=== PATIENT | female | born 1955 ===

== ENCOUNTER 2017-03-02 15:17 | Observation (INO) | payer BC, OTHER ==
[2017-03-02 15:17] VITALS: BMI 29.7
[2017-03-02] MEDS ORDERED: Sodium Chloride 0.9% 1,000 ML IV STA (15:41)
[2017-03-02 15:58] LABS: ADD MANUAL DIFF? NO
[2017-03-02 16:04] LABS: BASO # 0.02 K/mm3 (0.0-2.0); BASO % 0.2 % (0.0-3.0); EOS # 0.1 (0.0-0.7); EOS % 0.5 % (1.5-5.0); GRAN # 9.08 (1.4-6.5); GRAN % 81.7 % (50.0-68.0); HEMATOCRIT 35.9 % (36.0-48.0); LYMPH # 1.4 (1.2-3.4); LYMPH % 12.7 % (22.0-35.0); MEAN CELL VOLUME 80.5 fl (80.0-105.0); MEAN CORPUSCULAR HEMOGLOBIN 28.7 pg (25.0-35.0); MEAN CORPUSCULAR HGB CONC 35.7 g/dl (31.0-37.0); MEAN PLATELET VOLUME 10.3 fl (7.0-11.0); MONO # 0.5 (0.1-0.6); MONO % 4.9 % (1.0-6.0); PLATELET COUNT 182 10^3/uL (120.0-450.0); RED CELL DISTRIBUTION WIDTH 13.9 % (11.5-14.5); WHITE BLOOD COUNT 11.1 10^3/ul (4.5-11.0)
--- NOTE | 2017-03-02 16:04 | ED PDOC ---
Arrival/HPI - General Historian: Patient, Family - History of Present Illness Time/Duration: Prior to Arrival Symptom Onset: Sudden Quality: Cramping Severity Level: Moderate Context: Fainted, Other (straining on the toilet) <Irvin Johnson - Last Filed: 03/02/17 18:01> <MinnieMadhavi - Last Filed: 03/02/17 18:24> - General Chief Complaint: Syncope Time Seen by Provider: 03/02/17 15:17 - History of Present Illness Narrative History of Present Illness (Text): 03/02/17 16:12 61yo F with PMHx of HTN here for evaluation after syncope. Patient was at work when she started feeling a cramping type of abdominal pain. She went to the restroom and was sitting down on the toilet when she had a syncopal episode. She states that she felt diaphoretic just prior to her syncopal episode. She denies any trauma, head trauma, no headaches. Denies ever having similar symptoms before. States that she has not been drinking much fluids. Last meal was this afternoon (Rice and beans). She states that she feels constipated today. No N/V/D. Abd pain is still mildly present, described as colicky, cramping type of abd pain. She states that her co-workers found her in the restroom. Currently, patient states that she feels tired. Denies any recent illness. No sick contacts. No Fevers, chills. No CP/SOB. no Palpitations. The son is accompanying the patient. PMHx: HTN PSHx: Neck excess skin/fat removal. Foot skin mass removal. Uterine Fibroid removal, Hysterectomy Social Hx: Works at a [employer]. Denies Tobacco, Denies ETOH, Denies illicit drug use. NKDA (Irvin Johnson) Past Medical History - Provider Review Nursing Documentation Reviewed: Yes - Infectious Disease Hx of Infectious Diseases: None - Cardiac Hx Cardiac Disorders: Yes Hx Hypertension: Yes - Pulmonary Hx Respiratory Disorders: No - Neurological Hx Neurological Disorder: No - HEENT Hx HEENT Disorder: No - Renal Hx Renal Disorder: No - Endocrine/Metabolic Hx Endocrine Disorders: No - Hematological/Oncological Hx Blood Disorders: No - Integumentary Hx Dermatological Disorder: No - Musculoskeletal/Rheumatological Hx Musculoskeletal Disorders: No - Gastrointestinal Hx Gastrointestinal Disorders: No - Genitourinary/Gynecological Hx Genitourinary Disorders: No - Psychiatric Hx Psychophysiologic Disorder: No Hx Substance Use: No - Surgical History Hx Hysterectomy: Yes (10 yrs) - Anesthesia Hx Anesthesia: Yes Hx Anesthesia Reactions: No Hx Malignant Hyperthermia: No - Suicidal Assessment Feels Threatened In Home Enviroment: No <ElizabethIrvin - Last Filed: 03/02/17 18:01> Family/Social History - Physician Review Nursing Documentation Reviewed: Yes Family/Social History: Unknown Family HX Smoking Status: Never Smoked Hx Alcohol Use: No Hx Substance Use: No <ElizabethIrvin - Last Filed: 03/02/17 18:01> Allergies/Home Meds <ElizabethIrvin - Last Filed: 03/02/17 18:01> <MinnieMadhavi - Last Filed: 03/02/17 18:24> Allergies/Adverse Reactions: Allergies No Known Allergies Allergy (Verified 03/02/17 15:23) Home Medications: Home Meds Medication Instructions Recorded Confirmed hydroCHLOROthiazide [Microzide] 12.5 mg PO 03/02/17 Review of Systems - Physician Review All systems were reviewed & negative as marked: Yes - Review of Systems Constitutional: Normal Eyes: Normal ENT: Normal Respiratory: Normal Cardiovascular: Syncope. absent: Chest Pain, Palpitations, Edema, Calf Pain, CONTRERAS Gastrointestinal: Abdominal Pain, Constipation. absent: Diarrhea, Nausea, Vomiting Genitourinary Female: absent: Dysuria, Frequency Musculoskeletal: absent: Arthralgias, Back Pain Skin: absent: Rash Neurological: absent: Headache, Dizziness Endocrine: Diaphoresis <ElizabethIrvin - Last Filed: 03/02/17 18:01> Physical Exam Vital Signs Reviewed: Yes Temperature: Afebrile Blood Pressure: Hypertensive Pulse: Regular Respiratory Rate: Normal Appearance: Positive for: Non-Toxic, Comfortable, Ill-Appearing Pain Distress: Mild Mental Status: Positive for: Alert and Oriented X 3 Finger Stick Blood Glucose: 155 - Systems Exam Head: Present: Atraumatic, Normocephalic Extroacular Muscles: Present: EOMI Conjunctiva: Present: Normal Mouth: Present: Dry Neck: No: Meningeal Signs, JVD, Lymphadenopathy Respiratory/Chest: Present: Clear to Auscultation, Good Air Exchange. No: Respiratory Distress, Accessory Muscle Use, Wheezes, Decreased Breath Sounds, Rales, Rhonchi Cardiovascular: Present: Regular Rate and Rhythm, Normal S1, S2. No: Murmurs, Tachycardic Abdomen: No: Tenderness, Distention, Peritoneal Signs, Rebound, Guarding, Hernias Upper Extremity: Present: Normal Inspection. No: Cyanosis, Edema, Swelling Lower Extremity: Present: Normal Inspection. No: Edema, CALF TENDERNESS Neurological: Present: GCS=15 Skin: Present: Warm, Normal Color, Diaphoretic. No: Rashes Psychiatric: Present: Alert, Oriented x 3 <Irvin Johnson - Last Filed: 03/02/17 18:01> Medical Decision Making <Irvin Johnson - Last Filed: 03/02/17 18:01> <Madhavi Hartman - Last Filed: 03/02/17 18:24> ED Course and Treatment: 03/02/17 16:25 61yo F here for evaluation of syncope - History consistent with likely vasovagal episode - EKG: interpreted by me. Similar to previous EKGs. NSR. No ST changes apparent. - CXR - CT Head - CBC/CMP - Troponin - D-Dimer - UA - FSG = 155 - 1L NS bolus 03/02/17 16:27 Mild leukocytosis noted D-Dimer negative CXR - no acute findings CT Head with possible lacunar infarct. No acute hemorrhage Troponin negative 03/02/17 18:02 Discussed findings with family and patient. All questions and concerns addressed. Plan for admission to obs for at least 24hrs. Discussed case with Dr. Lang Farah, who agrees and accepts patient for admission under the hospitalist service. (Irvin Johnson) Patient seen and evaluated with resident. Agree with HPI, clinical findings, plan and treatment. Patient is a 61 year old female who presents to the emergency department for evaluation following a syncopal episode prior to arrival. Patient was sitting down on the toilet when she passed out. Denies any trauma related to fall. Currently complains of fatigue, but denies any other complaints. 03/02/17 18:22 Blood work is nondiagnostic but BP has remained high; CT brain showing lacunar infarct - will need further observation on tele for syncope as well as neuro workup. Resident discussed with Dr. Farah for placement on the hospitalist's service. 03/02/17 18:24 Will give asa and lopressor. (Madhavi Hartman) - Lab Interpretations Lab Results: 03/02/17 15:42 03/02/17 15:42 Lab Results 03/02/17 16:42: Urine Color Yellow, Urine Appearance Clear, Urine pH 6.5, Ur Specific [place] 1.020, Urine Protein Negative, Urine Glucose (UA) Negative, Urine Ketones Negative, Urine Blood Negative, Urine Nitrate Negative, Urine Bilirubin Negative, Urine Urobilinogen 0.2, Ur Leukocyte Esterase Trace H, Urine RBC Negative, Urine WBC 1 - 3, Ur Epithelial Cells 1 - 3, Urine Bacteria Few 03/02/17 15:42: D-Dimer, Quantitative 0.49 03/02/17 15:42: Sodium 138, Potassium 4.0, Chloride 97 L, Carbon Dioxide 29, Anion Gap 16, BUN 17, Creatinine 0.8, Est GFR ( Amer) > 60, Est GFR (Non- Af Amer) > 60, Random Glucose 131 H, Calcium 9.4, Phosphorus 4.0, Magnesium 2.2 , Total Bilirubin 0.4, AST 33, ALT 31, Alkaline Phosphatase 105, Lactate Dehydrogenase 597, Total Creatine Kinase 273 H, CK-MB (CK-2) 1.5, CK-MB (CK-2) % Cancelled, Troponin I < 0.01, Total Protein 8.0, Albumin 4.6, Globulin 3.4, Albumin/Globulin Ratio 1.4, Lipase 90 03/02/17 15:42: WBC 11.1 H, RBC 4.46, Hgb 12.8, Hct 35.9 L, MCV 80.5, MCH 28.7, MCHC 35.7, RDW 13.9, Plt Count 182, MPV 10.3, Gran % 81.7 H, Lymph % (Auto) 12.7 L, Iroquois % (Auto) 4.9, Eos % (Auto) 0.5 L, Baso % (Auto) 0.2, Gran # 9.08 H , Lymph # 1.4, [place]roquois # 0.5, Eos # 0.1, Baso # 0.02 - RAD Interpretation Radiology Orders: 03/02/17 16:01 Brain [HEAD W/O CONTRAST] [CT] Stat CHEST TWO VIEWS (PA/LAT) [RAD] Stat - Medication Orders Current Medication Orders: Discontinued Medications Sodium Chloride (Sodium Chloride 0.9%) 1,000 mls @ 999 mls/hr IV .Q1H1M STA Stop: 03/02/17 16:41 Last Admin: 03/02/17 15:58 Dose: 999 mls/hr Metoprolol Tartrate (Lopressor) 25 mg PO STAT STA Stop: 03/02/17 17:21 Last Admin: 03/02/17 17:38 Dose: 25 mg - PA / SPIRAL WINDING MACHINE HELPER / Resident Statement / has reviewed & agrees with the documentation as recorded. / has examined the patient and agrees with the treatment plan. <Irvin Johnson - Last Filed: 03/02/17 18:01> - PA / SPIRAL WINDING MACHINE HELPER / Resident Statement / has reviewed & agrees with the documentation as recorded. / has examined the patient and agrees with the treatment plan. <Madhavi Hartman - Last Filed: 03/02/17 18:24> - Scribe Statement Merlyn Astorga Provider Scribe Attestation: All medical record entries made by the Scribe were at my direction and personally dictated by me. I have reviewed the chart and agree that the record accurately reflects my personal performance of the history, physical exam, medical decision making, and the department course for this patient. I have also personally directed, reviewed, and agree with the discharge instructions and disposition. (Madhavi Hartman) Disposition/Present on Arrival - Present on Arrival Any Indicators Present on Arrival: No History of DVT/PE: No History of Uncontrolled Diabetes: No Urinary Catheter: No History of Decub. Ulcer: No History Surgical Site Infection Following: None - Disposition Have Diagnosis and Disposition been Completed?: Yes Disposition Time: 18:05 Patient Plan: Admission, Observation, Telemetry <Irvin Johnson - Last Filed: 03/02/17 18:01> <Madhavi Hartman - Last Filed: 03/02/17 18:24> - Disposition Diagnosis: Syncope Disposition: HOSPITALIZED Patient Problems: Current Active Problems Problem Status Onset Syncope Acute Condition: IMPROVED
[2017-03-02 16:17] LABS: ALB/GLOB RATIO 1.4 (1.1-1.8); ALKALINE PHOSPHATASE 105 U/L (38-133); ALT/SGPT 31 U/L (7-56); AST/SGOT 33 U/L (15-39); BILIRUBIN,TOTAL 0.4 mg/dL (0.2-1.3); BLOOD UREA NITROGEN 17 mg/dL (7-21); CALCIUM 9.4 mg/dL (8.4-10.5); CARBON DIOXIDE 29 mmol/L (21-33); CHLORIDE 97 mmol/L (98-107); GFR AFRICAN-AMERICAN > 60; GLUCOSE,RANDOM 131 mg/dL (70-110); LIPASE 90 U/L (23-300); MAGNESIUM 2.2 mg/dL (1.7-2.2); SODIUM 138 mmol/L (132-148)
[2017-03-02 16:27] LABS: TROPONIN I < 0.01 ng/mL
[2017-03-02 16:50] LABS: PH,URINE 6.5 (4.7-8.0); URINE BILIRUBIN NEGATIVE (NEGATIVE); URINE BLOOD NEGATIVE (NEGATIVE); URINE GLUCOSE (UA) NEGATIVE (NEGATIVE); URINE KETONE NEGATIVE (NEGATIVE); URINE LEUKOCYTE ESTERASE TRACE Leu/uL (NEGATIVE); URINE PROTEIN NEGATIVE mg/dL (<30 mg/dL); URINE UROBILINOGEN 0.2 E.U./dL (<1 E.U./dL)
[2017-03-02 16:58] LABS: URINE APPEARANCE CLEAR (CLEAR); URINE COLOR YELLOW (YELLOW)
[2017-03-02 17:14] LABS: URINE BACTERIA FEW (NEG); URINE RBC NEGATIVE /hpf (0-2)
--- NOTE | 2017-03-02 17:23 | CT ---
PROCEDURE: CT HEAD WITHOUT CONTRAST. HISTORY: syncope COMPARISON: None available. TECHNIQUE: Axial computed tomography images were obtained through the head/brain without intravenous contrast. Radiation dose: Total exam DLP = 677.45 mGy-cm. This CT exam was performed using one or more of the following dose reduction techniques: Automated exposure control, adjustment of the mA and/or kV according to patient size, and/or use of iterative reconstruction technique. FINDINGS: HEMORRHAGE: No intracranial hemorrhage. BRAIN: No mass effect or edema. Probable 4 mm left basal ganglia lacunar infarct. The brewer-white matter differentiation appears intact. Please note that MRI with diffusion imaging is more sensitive in the detection of acute ischemic event. VENTRICLES: No hydrocephalus. CALVARIUM: Unremarkable. PARANASAL SINUSES: Unremarkable as visualized. No significant inflammatory changes. MASTOID AIR CELLS: Unremarkable as visualized. No inflammatory changes. OTHER FINDINGS: None. IMPRESSION: Probable 4 mm left basal ganglia lacunar infarct.
--- NOTE | 2017-03-02 17:34 | RAD ---
HISTORY: COMPARISON: 03/02/2017 TECHNIQUE: Chest PA and lateral FINDINGS: LINES AND TUBES: None. LUNG AND PLEURA: The lungs are well inflated and clear. HEART AND MEDIASTINUM: The heart is not enlarged. The hilar and mediastinal contours are within normal limits. SKELETAL STRUCTURES: The bony structures are within normal limits for the patient's age. VISUALIZED UPPER ABDOMEN: Normal. OTHER FINDINGS: None. IMPRESSION: No active pulmonary disease.
--- NOTE | 2017-03-02 18:28 | CARD ---
APPROVED REPORT EKG Measurement Heart [id number] IL [id number] <Conclusion> Normal sinus rhythm Minimal voltage criteria for LVH, may be normal variant Nonspecific T wave abnormality Prolonged QT Abnormal ECG
--- NOTE | 2017-03-02 23:20 | CP.PCM.HP ---
<ZulayMax - Last Filed: 03/02/17 23:15> History of Present Illness - History of Present Illness History of Present Illness: 61 F PMHx of HTN presented with c/o possible syncopal event. Pt speaks Kyrgyz. She states that she was at work when she started having abdominal pain. She went to the toilet and was having a conversation with someone in the stall next to her when she stopped responding. When her friend did not hear from her, the friend came into the patient's stall to find her slumped over. EMT was called. Patient states that she only fully regained consciousness in the ambulance. Patient denies biting her tongue, loss of bowel/bladder, falling and hitting her head, nor any other symptoms. She states that she is no longer having abdominal pain. Patient further states that she felt confused a little earlier but feels fine now. Pt denies recent illness or sick contacts. Pt denies f/ch/n/v/d/cp/sob. PSHx: Pt denies PMHx: HTN ALL: NKDA SocHx: Pt admits to EtOh FamHx: Noncontributory Medications: HCTZ Present on Admission - Present on Admission Any Indicators Present on Admission: No Review of Systems - Hematologic/Lymphatic Additional comments: Constitutional: pt denies fever, chills, generalized weakness ENT: pt denies dysphagia, otalgia, hearing deficit, rhinorrhea Eyes: pt denies sudden loss of vision, diplopia, blurred vision MSK: pt denies muscle stiffness, joint pain, extremity cramping Cardio: pt denies sob, heart murmur, cp Pulm: pt denies cough, hemoptysis, wheeze GI: pt denies loss of appetite, abdominal pain, constipation, melena, n/v/d : pt denies burning on urination, urinary frequency, hematuria, urinary urgency Neuro: pt denies paresis, paresthesia, dizziness, isaacs, numbness, tingling Derm: pt denies skin changes, lesions, nail changes Endo: pt denies intolerance to heat/cold, diaphoresis, night sweats, polydipsia Psych: pt denies anxiety, depression, mood changes Past Patient History - Infectious Disease Hx of Infectious Diseases: None - Past Medical History & Family History Past Medical History?: Yes - Past Social History Smoking Status: Never Smoked - CARDIAC Hx Cardiac Disorders: Yes Hx Hypertension: Yes - PULMONARY Hx Respiratory Disorders: No - NEUROLOGICAL Hx Neurological Disorder: No - HEENT Hx HEENT Problems: No - RENAL Hx Chronic Kidney Disease: No - ENDOCRINE/METABOLIC Hx Endocrine Disorders: No - HEMATOLOGICAL/ONCOLOGICAL Hx Blood Disorders: No - INTEGUMENTARY Hx Dermatological Problems: No - MUSCULOSKELETAL/RHEUMATOLOGICAL Hx Musculoskeletal Disorders: No - GASTROINTESTINAL Hx Gastrointestinal Disorders: No - GENITOURINARY/GYNECOLOGICAL Hx Genitourinary Disorders: No - PSYCHIATRIC Hx Psychophysiologic Disorder: No Hx Substance Use: No - SURGICAL HISTORY Hx Hysterectomy: Yes (10 yrs) - ANESTHESIA Hx Anesthesia: Yes Hx Anesthesia Reactions: No Hx Malignant Hyperthermia: No Meds Allergies/Adverse Reactions: Allergies Allergy/AdvReac Type Severity Reaction Status Date / Time No Known Allergies Allergy Verified 03/02/17 15:23 Physical Exam - Additional Findings Additional findings: VS as above Constitutional: a&o x 4, nad Head and Neck: neck supple, no jvd, trachea midline, carotid midline, no cervical/head mass Eyes: michael, nonicteric sclera, eom intact ENT: auditory acuity grossly intact, throat not congested, no nasal deformity Cardio: rrr, no m/r/g, no carotid bruit, nml s1, s2 Pulm: no accessory muscle use, equal nml breath sounds bilaterally, ctab Abd: s/nt/nd, nbs x 4 q, no palpable masses Derm: no rashes, no ulcers, no lesions Extr: no edema, no cyanosis, no calf tenderness, no lesions, no varicosities Neuro: cn II-XII grossly intact, ue and le 5/5 muscle strength bilaterally, no los ue, le bilaterally and core Results - Vital Signs Recent Vital Signs: Last Vital Signs Temp 98.4 F 03/02/17 15:48 Pulse 86 03/02/17 18:33 Resp 16 03/02/17 18:33 BP 142/88 03/02/17 18:33 Pulse Ox 95 03/02/17 18:33 - Labs Result Diagrams: 03/02/17 15:42 03/02/17 15:42 Assessment & Plan - Assessment and Plan (Free Text) Assessment: 61 F s/p poss syncopal event Plan: 1.) Possible Syncopal Event - EKG shows NSR - CXR shows no acute disease - Tropes negative, pending X2 - D-Dimer Negative - UA pending - CT Head shows possible lacunar infarct - Neuro C/s : Dr. Frye - ECHO pending - Carotid U/S pending 2.) Hx/O HTN - Continue home meds - Heart Healthy Diet 3.) DVT/GI PPHXS - Protonix/SCD <Amol Benton - Last Filed: 03/03/17 02:29> Results - Vital Signs Recent Vital Signs: Last Vital Signs Temp 99.6 F 03/03/17 00:01 Pulse 65 03/03/17 00:01 Resp 18 03/03/17 00:01 BP 129/80 03/03/17 00:01 Pulse Ox 97 03/03/17 00:01 - Labs Result Diagrams: 03/02/17 15:42 03/02/17 15:42 Attending/Attestation - Attestation I have personally seen and examined this patient.: Yes I have fully participated in the care of the patient.: Yes I have reviewed all pertinent clinical information: Yes Notes (Text): 03/03/17 02:29 Patient was seen when she was in bed # 261-02. Agree with history, physical examination, assessment and plan.
[2017-03-03 05:02] LABS: ADD MANUAL DIFF? NO
[2017-03-03 05:11] LABS: BASO # 0.03 K/mm3 (0.0-2.0); BASO % 0.4 % (0.0-3.0); EOS # 0.1 (0.0-0.7); EOS % 1.7 % (1.5-5.0); GRAN # 4.03 (1.4-6.5); GRAN % 53.6 % (50.0-68.0); HEMATOCRIT 34.3 % (36.0-48.0); LYMPH # 2.7 (1.2-3.4); LYMPH % 36.3 % (22.0-35.0); MEAN PLATELET VOLUME 10.6 fl (7.0-11.0); MONO # 0.6 (0.1-0.6); PLATELET COUNT 163 10^3/uL (120.0-450.0); WHITE BLOOD COUNT 7.5 10^3/ul (4.5-11.0)
[2017-03-03 05:25] LABS: BLOOD UREA NITROGEN 13 mg/dL (7-21); CALCIUM 8.8 mg/dL (8.4-10.5); CARBON DIOXIDE 28 mmol/L (21-33); CHLORIDE 103 mmol/L (95-110); GFR AFRICAN-AMERICAN > 60; GLUCOSE,RANDOM 102 mg/dL (70-110); SODIUM 141 mmol/L (132-148)
[2017-03-03] MEDS: Pantoprazole 40 mg EC Tab PO SCH (06:13)
[2017-03-03 07:25] LABS: CHOLESTEROL 226 mg/dL (130-200)
--- NOTE | 2017-03-03 13:20 | CP.PCM.PN ---
<Julita Yip - Last Filed: 03/03/17 13:34> Subjective - Date & Time of Evaluation Date of Evaluation: 03/03/17 Time of Evaluation: 13:18 - Subjective Subjective: Progress note for Dr. Samaniego PT S&E at bedside. patient states she is feeling better today. no abdominal pain , dizziness, headache. Patient denies chest pain. Patient states her sister at the age of 54F from a stroke. Patient states her HTN is her only medical issue. At bedside, blood pressure was retaken and was 117 systolic. Patient is still bradycardic. Patient denies F/C, N/V. Patient states she's never had syncope before. Patient denies history of cholesterol problems Objective - Vital Signs/Intake and Output Vital Signs (last 24 hours): Temp Pulse Resp BP Pulse Ox 98.3 F 59 L 18 130/90 95 03/03/17 06:00 03/03/17 10:00 03/03/17 06:00 03/03/17 06:00 03/03/17 06:00 Intake and Output: 03/03/17 03/03/17 06:59 18:59 Intake Total 260 Output Total 400 Balance -140 - Medications Medications: Current Medications Acetaminophen (Tylenol 325mg Tab) 650 mg PO Q6H PRN PRN Reason: Fever >100.4 F Hydrochlorothiazide (Microzide) 12.5 mg PO DAILY [facility] Pantoprazole Sodium (Protonix Ec Tab) 40 mg PO 0600 [facility] Last Admin: 03/03/17 06:13 Dose: 40 mg - Labs Labs: 03/03/17 04:10 03/03/17 04:10 - Constitutional Appears: Non-toxic, No Acute Distress - Head Exam Head Exam: NORMAL INSPECTION - Eye Exam Eye Exam: EOMI, Normal appearance - ENT Exam ENT Exam: Mucous Membranes Moist - Neck Exam Neck Exam: Full ROM. absent: Tenderness - Respiratory Exam Respiratory Exam: NORMAL BREATHING PATTERN. absent: Accessory Muscle Use, Respiratory Distress - Cardiovascular Exam Cardiovascular Exam: Bradycardia. absent: Tachycardia - GI/Abdominal Exam GI & Abdominal Exam: Soft. absent: Tenderness - Extremities Exam Extremities Exam: Full ROM, Normal Inspection. absent: Calf Tenderness, Joint Swelling, Pedal Edema - Neurological Exam Neurological Exam: Alert, Awake, Normal Gait - Psychiatric Exam Psychiatric exam: Normal Affect, Normal Mood - Skin Skin Exam: Dry, Normal Color, Warm Assessment and Plan - Assessment and Plan (Free Text) Assessment: 61 F syncopal episode x 1, PMH HTN. Plan: 1.) Possible Syncopal Event - EKG shows NSR - CXR shows no acute disease - Tropes negative, pending X2 - Neuro Conult: Dr. Murillo: recommending echo bubble study, aspirin 81 mg POQD, MRI Brain with and without contrast. MRA head and neck - Carotid U/S pending d-dimer 0.49 TG 186 Cholesterol 226 LDL 156 HDL 36 TSH 3rd gen: 0.8 03/[address]: left basal ganglia lacunar infarct 4mm 03/02 CXR: no pulmonary disease 03/02 EK NSR 2.) Hx/O HTN - Continue home meds - Heart Healthy Diet 3.) DVT/GI PPx - Protonix/SCD Julita Yip, DO PGY1 <Susanna Samaniego - Last Filed: 03/03/17 14:30> Objective - Vital Signs/Intake and Output Vital Signs (last 24 hours): Temp Pulse Resp BP Pulse Ox 98.3 F 59 L 18 130/90 95 03/03/17 06:00 03/03/17 10:00 03/03/17 06:00 03/03/17 06:00 03/03/17 06:00 Intake and Output: 03/03/17 03/03/17 06:59 18:59 Intake Total 260 Output Total 400 Balance -140 - Medications Medications: Current Medications Acetaminophen (Tylenol 325mg Tab) 650 mg PO Q6H PRN PRN Reason: Fever >100.4 F Aspirin (Ecotrin) 81 mg PO DAILY [facility] Atorvastatin Calcium (Lipitor) 40 mg PO DIN [facility] Hydrochlorothiazide (Microzide) 12.5 mg PO DAILY [facility] Last Admin: 03/03/17 13:42 Dose: 12.5 mg Pantoprazole Sodium (Protonix Ec Tab) 40 mg PO 0600 [facility] Last Admin: 03/03/17 06:13 Dose: 40 mg - Labs Labs: 03/03/17 04:10 03/03/17 04:10 Attending/Attestation - Attestation I have personally seen and examined this patient.: Yes I have fully participated in the care of the patient.: Yes I have reviewed all pertinent clinical information, including history, physical exam and plan: Yes Notes (Text): 03/03/17 14:22 attending note; Patient seen and examined with resident. Patient is a 61-year-old female admitted after a syncopal episode. CT head showed 4 mm ischemic infarct. Currently no focal motor or sensory deficit. No speech or swallowing difficulty. Continue aspirin, Lipitor. Neurology evaluation appreciated. MRI/MRA ordered. Echocardiogram with bubble study suggested. Cardiology evaluation with Dr. Garcia appreciated. Outpatient stress test will be arranged. PT evaluation requested. Upon discharge the patient will be referred to [facility] clinic.
--- NOTE | 2017-03-03 13:27 | CP.PCM.CON ---
History of Present Illness - History of Present Illness History of Present Illness: Mrs. Ramsey is a 61-year-old woman with a past medical history of hypertension , who is admitted after experiencing an episode of abdominal pain and dizziness which may have led to syncope while she was sitting on the toilet. She apparently lost consciousness and EMS was called. She regained consciousness, but was slightly confused after. Today, she is back to baseline and has no complaints. CT scan of the head was done and was concerning for a possible prior lacunar infarct. Review of Systems - Review of Systems All systems: reviewed and no additional remarkable complaints except Past Patient History - Infectious Disease Hx of Infectious Diseases: None - Past Medical History & Family History Past Medical History?: Yes - Past Social History Smoking Status: Never Smoked - CARDIAC Hx Cardiac Disorders: Yes Hx Hypercholesterolemia: Yes Hx Hypertension: Yes - PULMONARY Hx Respiratory Disorders: No - NEUROLOGICAL Hx Neurological Disorder: No - HEENT Hx HEENT Problems: No - RENAL Hx Chronic Kidney Disease: No - ENDOCRINE/METABOLIC Hx Endocrine Disorders: No - HEMATOLOGICAL/ONCOLOGICAL Hx Blood Disorders: No - INTEGUMENTARY Hx Dermatological Problems: No - MUSCULOSKELETAL/RHEUMATOLOGICAL Hx Musculoskeletal Disorders: No Hx Falls: No - GASTROINTESTINAL Hx Gastrointestinal Disorders: No - GENITOURINARY/GYNECOLOGICAL Hx Genitourinary Disorders: No - PSYCHIATRIC Hx Psychophysiologic Disorder: No Hx Substance Use: No - SURGICAL HISTORY Hx Surgeries: Yes (colonoscopy) Hx Hysterectomy: Yes - ANESTHESIA Hx Anesthesia: Yes Hx Anesthesia Reactions: No Hx Malignant Hyperthermia: No Meds Allergies/Adverse Reactions: Allergies Allergy/AdvReac Type Severity Reaction Status Date / Time No Known Allergies Allergy Verified 03/02/17 15:23 - Medications Medications: Current Medications Acetaminophen (Tylenol 325mg Tab) 650 mg PO Q6H PRN PRN Reason: Fever >100.4 F Hydrochlorothiazide (Microzide) 12.5 mg PO DAILY [facility] Pantoprazole Sodium (Protonix Ec Tab) 40 mg PO 0600 [facility] Last Admin: 03/03/17 06:13 Dose: 40 mg Physical Exam - Constitutional Appears: Well - Head Exam Head Exam: ATRAUMATIC, NORMAL INSPECTION, NORMOCEPHALIC - Eye Exam Eye Exam: EOMI, Normal appearance, PERRL - ENT Exam ENT Exam: Mucous Membranes Moist, Normal Exam - Neck Exam Neck exam: Positive for: Normal Inspection - Respiratory Exam Respiratory Exam: Clear to Auscultation Bilateral, NORMAL BREATHING PATTERN - Cardiovascular Exam Cardiovascular Exam: REGULAR RHYTHM, +S1, +S2 - GI/Abdominal Exam GI & Abdominal Exam: Normal Bowel Sounds, Soft. absent: Tenderness - Rectal Exam Rectal Exam: Deferred - Extremities Exam Extremities exam: Positive for: normal inspection - Back Exam Back exam: NORMAL INSPECTION - Neurological Exam Neurological exam: Alert, CN II-XII Intact, Normal Gait, Oriented x3, Reflexes Normal - Expanded Neurological Exam Expanded Patient oriented to: person, place, time Cranial nerves: EOM's Intact: Normal, Facial Sensation: Normal, Nystagmus: Normal Ataxia: No Cerebellar Function: Finger to Nose: Normal, Heel to Bird: Normal Upper motor neuron: Babinski Sign: Normal Sensory exam: Lower Extremity Light Touch: Normal, Lower Extremity Pin Prick: Normal, Upper Extremity Light Touch: Normal, Upper Extremity Pin Prick: Normal Neuro motor strength exam: Left Upper Extremity: 5, Right Upper Extremity: 5, Left Lower Extremity: 5, Right Lower Extremity: 5 DTR: Achilles Tendon Left: 2+, Achilles Tendon Right: 2+, Bicep Left: 2+, Bicep Right: 2+, Brachioradialis Left: 2+, Brachioradialis Right: 2+, Patellar Left: 2 +, Patellar Right: 2+, Tricep Left: 2+, Tricep Right: 2+ - Psychiatric Exam Psychiatric exam: Normal Affect, Normal Mood - Skin Skin Exam: Dry, Intact, Normal Color, Warm Results - Vital Signs Recent Vital Signs: Last Vital Signs Temp 98.3 F 03/03/17 06:00 Pulse 59 L 03/03/17 10:00 Resp 18 03/03/17 06:00 BP 130/90 03/03/17 06:00 Pulse Ox 95 03/03/17 06:00 - Labs Result Diagrams: 03/03/17 04:10 03/03/17 04:10 Labs: Laboratory Results - last 24 hr 03/03/17 03/03/17 03/03/17 04:10 04:10 04:10 WBC 7.5 D RBC 4.29 Hgb 12.0 Hct 34.3 L MCV 80.0 MCH 28.0 MCHC 35.0 RDW 14.0 Plt Count 163 MPV 10.6 Gran % 53.6 Lymph % (Auto) 36.3 H Cocke % (Auto) 8.0 H Eos % (Auto) 1.7 Baso % (Auto) 0.4 Gran # 4.03 Lymph # 2.7 Cocke # 0.6 Eos # 0.1 Baso # 0.03 Sodium 141 Potassium 4.0 Chloride 103 Carbon Dioxide 28 Anion Gap 14 BUN 13 Creatinine 0.8 Est GFR ( Amer) > 60 Est GFR (Non-Af Amer) > 60 Random Glucose 102 Hemoglobin A1c Calcium 8.8 Triglycerides 186 H Cholesterol 226 H LDL Cholesterol Direct 156 H HDL Cholesterol 36 TSH 3rd Generation 03/03/17 03/03/17 04:10 04:10 WBC RBC Hgb Hct MCV MCH MCHC RDW Plt Count MPV Gran % Lymph % (Auto) Cocke % (Auto) Eos % (Auto) Baso % (Auto) Gran # Lymph # Cocke # Eos # Baso # Sodium Potassium Chloride Carbon Dioxide Anion Gap BUN Creatinine Est GFR ( Amer) Est GFR (Non-Af Amer) Random Glucose Hemoglobin A1c 5.6 Calcium Triglycerides Cholesterol LDL Cholesterol Direct HDL Cholesterol TSH 3rd Generation 0.8 - Imaging and Cardiology CT scan - head Status: Image reviewed by me, Report reviewed by me (Probable left basal ganglia chronic 4 mm infarct.) Assessment & Plan - Assessment and Plan (Free Text) Assessment: Syncopal episode while using the bathroom may be due to neurocardiogenic causes. Seizure is less likely. CT head shows possible prior infarct. I recommend he followin. Telemetry 2. MRI of the brain with and without contrast, MRA of the head/neck 3. Aspirin 81 mg daily 4. Check lipid panel, HbA1c, B12, folate, TSH 5. PT/OT eval and treat 6. Echocardiogram with bubble study 7. DVT Px 8. Case management consult Thank you.
--- NOTE | 2017-03-03 14:21 | CON ---
DATE: 03/03/2017 CARDIOLOGY CONSULTATION HISTORY OF PRESENT ILLNESS: The patient is a 61-year-old woman, who presented with a near syncopal episode. The patient apparently went to the bathroom, had transient abdominal pain and felt dizzy and she sat down in the toilet. She did experience some diaphoresis. No head trauma was noted. No loss of consciousness noted. No previous episode. The patient apparently because of abdominal pain had stopped taking fluids and p.o. intake. Since then her symptoms have resolved. The patient has no previous cardiac history. No shortness of breath. No chest pain. PAST MEDICAL HISTORY: The patient's past medical history is notable for hypertension, no diabetes mellitus. Echocardiogram performed earlier this year revealed normal LV function and no LV outflow obstruction. SOCIAL HISTORY: Denies smoking. REVIEW OF SYSTEMS: A 14-point review of systems is free of cardiac symptomatology. The patient is feeling well and ambulating. PHYSICAL EXAMINATION: VITAL SIGNS: Blood pressure 130/90, the heart rate is in the 60s. NECK: Negative JVD. LUNGS: Without rales. HEART: Reveal S1, S2. EXTREMITIES: Without edema. EKG shows normal sinus rhythm with nonspecific ST flattening. LABORATORY DATA: Laboratories reveal troponins that are negative x1. Hemoglobin is 12. Chemistries reveal cholesterol of 226 with LDL of 156. Troponin is negative. IMPRESSION: 1. Near syncopal episode secondary to abdominal pain which is transient and resolved. 2. Abdominal pain which is transient and resolved. 3. Hypercholesterolemia. 4. Hypertension. Given these findings, there is no cardiac cause of her symptoms. Her symptoms may have been a vagal response for abdominal pain which is now resolved. We will discontinue telemetry today. From a cardiac perspective, the patient should have a stress test given her cardiac risk factors. Delbert Garcia MD
--- NOTE | 2017-03-03 15:27 | US ---
PROCEDURE: Bilateral carotid artery duplex ultrasound HISTORY: Carotid stenosis syncope PHYSICIAN(S): Delbert Jacobson MD. TECHNIQUE: Duplex sonography and color-flow Doppler were used to evaluate the carotid bifurcations and limited segments of the vertebral arteries bilaterally. FINDINGS: There is mild smooth hypoechoic plaque noted at the carotid bifurcations bilaterally. The peak systolic velocity in the proximal right internal carotid artery is 65 cm/sec. This corresponds to a 20 to 39% proximal right ICA stenosis. Normal systolic velocities are noted in the proximal right external carotid artery. There is antegrade flow in the right vertebral artery. The peak systolic velocity in the proximal left internal carotid artery is 66 cm/sec. This corresponds to a 20 to 39% proximal left ICA stenosis. Normal systolic velocities are noted in the proximal left external carotid artery. There is antegrade flow in the left vertebral artery. IMPRESSION: 1. Bilateral 20-39% proximal ICA stenoses. 2. Antegrade flow in both vertebral arteries.
[2017-03-03] MEDS ORDERED: Gadodiamide 287 MG/ML VIAL (15ML) IV ONE (17:34)
--- NOTE | 2017-03-03 21:09 | MRI ---
EXAM: MR Angiography Head Without Intravenous Contrast EXAM DATE/TIME: 03/03/2017 1:08 PM CLINICAL HISTORY: The patient age is 61 years old and is female; Abnormal findings; Abnormal lab test; High blood pressure; Additional info: Stroke and loc Facility exam id and description: Mri mra heads mra head without contrast TECHNIQUE: Magnetic resonance angiography images of the head without intravenous contrast. COMPARISON: CT - HEAD W/O CONTRAST 03/02/2017 4:42:43 PM FINDINGS: Right internal carotid artery: No acute findings. Intracranial segment is patent with no significant stenosis. No aneurysm. Right anterior cerebral artery: No occlusion or significant stenosis. No aneurysm. Right middle cerebral artery: There is probable artifact limiting evaluation of the distal right M1 and proximal M2 segments of the right middle cerebral artery. There is no significant stenosis or occlusion of these vessels. No aneurysm. Right posterior cerebral artery: No occlusion or significant stenosis. No aneurysm. Right vertebral artery: No occlusion or significant stenosis. Left internal carotid artery: No acute findings. Intracranial segment is patent with no significant stenosis. No aneurysm. Left anterior cerebral artery: Artifact limits evaluation of the anterior communicating artery. In the region of the anterior communicating artery on the left side, there is a small vascular projection suspicious for aneurysm measuring 0.3 x 0.2 cm. No occlusion or significant stenosis. Left middle cerebral artery: There is a decrease in caliber or stenosis of the proximal M2 segment of the left middle cerebral artery. Artifact in this region may contribute to this finding. No aneurysm. Left posterior cerebral artery: No occlusion or significant stenosis. No aneurysm. Left vertebral artery: A dominant distal left vertebral artery is visualized. No occlusion or significant stenosis. Basilar artery: No occlusion or significant stenosis. No aneurysm. Increased tortuosity. IMPRESSION: 1. Artifact limits evaluation of the anterior communicating artery. In the region of the anterior communicating artery on the left side, there is a small vascular projection suspicious for aneurysm measuring 0.3 x 0.2 cm. Correlation with CTA is recommended. 2. A dominant distal left vertebral artery is visualized. 3. There is a decrease in caliber or stenosis of the proximal M2 segment of the left middle cerebral artery. Artifact in this region may contribute to this finding. 4. Additional findings described above.
--- NOTE | 2017-03-03 21:18 | MRI ---
EXAM: MR Head Without and With Intravenous Contrast EXAM DATE/TIME: 03/03/2017 1:08 PM CLINICAL HISTORY: The patient age is 61 years old and is female; Abnormal findings; Abnormal lab test; High blood pressure; Additional info: Stroke and loc. High blood pressure Facility exam id and description: Mri br cs brain w wo contrast TECHNIQUE: Magnetic resonance images of the head/brain without and with intravenous contrast in multiple planes. CONTRAST: 15 mL of Omniscan administered intravenously. COMPARISON: CT - HEAD W/O CONTRAST 03/02/2017 4:42:43 PM FINDINGS: Brain: There is no restricted diffusion within the brain to suggest acute ischemic change. Within the left basal ganglia, there is a 4 mm T2 hyperintense chronic lacunar infarct. An additional small focus of T2 hyperintensity is seen within the left thalamus, consistent with chronic ischemic change. There are scattered foci of high FLAIR signal intensity within the cerebral white matter. There is no mass effect or restricted diffusion associated with these foci. In a patient this age, this likely represents chronic small vessel ischemic disease. Linear foci of enhancement are visualized within the right internal auditory canal, suggestive of an anterior inferior cerebellar artery vascular loop. Neuritis is within the differential. No cerebral edema. Ventricles: No ventriculomegaly. Bones/joints: No acute abnormality. Sinuses: There is minimal mucosal thickening of the sphenoid sinuses and left maxillary sinus. There is minimal mucosal thickening of a few ethmoid air cells. No acute sinusitis. Mastoid air cells: No mastoid effusion. Orbits: No acute abnormality, as visualized. IMPRESSION: 1. There is no restricted diffusion within the brain to suggest acute ischemic change. 2. Within the left basal ganglia, there is a 4 mm chronic lacunar infarct. An additional small focus of T2 hyperintensity is seen within the left thalamus, consistent with chronic ischemic change. 3. There are scattered foci of high FLAIR signal intensity within the cerebral white matter. In a patient this age, this likely represents chronic small vessel ischemic disease. 4. Linear foci of enhancement are visualized within the right internal auditory canal, suggestive of an anterior inferior cerebellar artery vascular loop. Neuritis is within the differential. Clinical correlation is recommended. 5. Paranasal sinus disease is noted above.
--- NOTE | 2017-03-03 21:24 | MRI ---
EXAM: MR Angiography Neck Without Intravenous Contrast EXAM DATE/TIME: 03/03/2017 1:08 PM CLINICAL HISTORY: The patient age is 61 years old and is female; Abnormal findings; Abnormal lab test; High blood pressure; Additional info: Stroke and loc Facility exam id and description: Mri mra necks mra neck without contrast TECHNIQUE: Magnetic resonance angiography images of the neck without intravenous contrast. COMPARISON: No relevant prior studies available. FINDINGS: Right common carotid artery: There is suboptimal evaluation of the proximal right common carotid artery due to artifact. The remaining right common carotid artery is patent, without significant stenosis or occlusion. Right internal carotid artery: There is no significant stenosis or occlusion of the extracranial internal carotid arteries bilaterally. Artifact limits evaluation of the petrous internal carotid arteries bilaterally, which are patent on the MRA images of the head from the same day. Right external carotid artery: No occlusion. Right vertebral artery: See below. Left common carotid artery: Artifact limits evaluation of the proximal left common carotid artery. The remaining left common carotid artery is patent, without significant stenosis or occlusion. Left internal carotid artery: See above. Left external carotid artery: No occlusion. Left vertebral artery: A dominant left vertebral artery is identified. Artifact significantly limits evaluation of the proximal and distal aspects of the vertebral arteries. The vertebral arteries are otherwise patent. CAROTID STENOSIS REFERENCE USING NASCET CRITERIA: % ICA stenosis = (1 - narrowest ICA diameter/diameter of distal cervical ICA) x 100. Mild - <50% stenosis. Moderate - 50-69% stenosis. Severe - 70-94% stenosis. Near occlusion - 95-99% stenosis. Occluded - 100% stenosis. IMPRESSION: 1. There is no significant stenosis or occlusion of the extracranial internal carotid arteries bilaterally. 2. A dominant left vertebral artery is identified. 3. Artifact significantly limits evaluation of the bilateral proximal common carotid arteries as well as the proximal and distal aspects of the vertebral arteries. This can be further evaluated with post contrast MRA or CTA.
[2017-03-04] MEDS: Pantoprazole 40 mg EC Tab PO SCH (06:37)
[2017-03-04 06:53] VITALS: O2SAT 100
--- NOTE | 2017-03-04 12:04 | CP.PCM.PN ---
<TheodoraJulita - Last Filed: 03/04/17 15:47> Subjective - Date & Time of Evaluation Date of Evaluation: 03/04/17 Time of Evaluation: 12:50 - Subjective Subjective: Progress note for Dr. Anthony: PT S&E at bedside, patient states she's doing better today compared to yesterday. Patient was started on lipitor [address] Murillo. Patient went for an MRI brain, MRA head and neck yesterday. 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 MRI of brain showed T2 hyperdensity in the Left thalamus. Patient denies headache, dizziness, abdominal pain. Patient states she didn't have an appetite today because she didn't like the food this morning. Per Dr. Murillo, patient is staying one more day for CTA of head to further evaluate aneurysm Objective - Vital Signs/Intake and Output Vital Signs (last 24 hours): Temp Pulse Resp BP Pulse Ox 98.6 F 59 L 16 109/66 100 03/04/17 06:00 03/04/17 06:00 03/04/17 06:00 03/04/17 06:00 03/04/17 06:00 Intake and Output: 03/04/17 03/04/17 06:59 18:59 Intake Total 1200 Balance 1200 - Medications Medications: Current Medications Acetaminophen (Tylenol 325mg Tab) 650 mg PO Q6H PRN PRN Reason: Fever >100.4 F Aspirin (Ecotrin) 81 mg PO DAILY [facility] Atorvastatin Calcium (Lipitor) 40 mg PO DIN [facility] [place] Last Admin: 03/03/17 18:32 Dose: 40 mg Hydrochlorothiazide (Microzide) 12.5 mg PO DAILY [facility] [place] Last Admin: 03/03/17 13:42 Dose: 12.5 mg Pantoprazole Sodium (Protonix Ec Tab) 40 mg PO 0600 [facility] [place] Last Admin: 03/04/17 06:37 Dose: 40 mg - Labs Labs: 03/03/17 04:10 03/03/17 04:10 - Constitutional Appears: Non-toxic, No Acute Distress - Head Exam Head Exam: NORMAL INSPECTION - Eye Exam Eye Exam: EOMI, Normal appearance - ENT Exam ENT Exam: Mucous Membranes Moist - Neck Exam Neck Exam: Full ROM. absent: Tenderness - Respiratory Exam Respiratory Exam: Clear to Ausculation Bilateral, NORMAL BREATHING PATTERN. absent: Accessory Muscle Use, Respiratory Distress - Cardiovascular Exam Cardiovascular Exam: REGULAR RHYTHM. absent: Bradycardia, Tachycardia - GI/Abdominal Exam GI & Abdominal Exam: Soft. absent: Tenderness, Pulsatile Mass, Rebound - Extremities Exam Extremities Exam: Full ROM, Normal Inspection. absent: Joint Swelling, Pedal Edema - Neurological Exam Neurological Exam: Alert, Awake, Normal Gait - Psychiatric Exam Psychiatric exam: Normal Affect, Normal Mood - Skin Skin Exam: Dry, Intact, Normal Color, Warm Assessment and Plan - Assessment and Plan (Free Text) Assessment: 61 F syncopal episode x 1, PMH HTN. Plan: Plan: 1.) Possible Syncopal Event - EKG shows NSR - CXR shows no acute disease - Tropes negative, pending X2 - Neuro Conult: Dr. Murillo: recommending echo bubble study, aspirin 81 mg POQD, MRI Brain with and without contrast. MRA head and neck - Carotid U/S pending 2) aneurysm found on MRI head f/u CTA head d-dimer 0.49 TG 186 Cholesterol 226 LDL 156 HDL 36 TSH 3rd gen: 0.8 03/[address]: left basal ganglia lacunar infarct 4mm 03/02 CXR: no pulmonary disease 03/02 EK NSR 03/03 MRI T2 hyperdensity in left thalamus 03/03 MRA Head/Neck: 0.3 x 0.2 WILFRED aneurysm 03/03 Echo Bubble Study: f/u today: 2.) Hx/O HTN - Continue home meds - Heart Healthy Diet 3.) DVT/GI PPx - Protonix/SCD Julita Yip DO PGY1 <Servando Anthony A - Last Filed: 03/04/17 15:54> Objective - Vital Signs/Intake and Output Vital Signs (last 24 hours): Temp Pulse Resp BP Pulse Ox 98 F 95 H 20 134/86 100 03/04/17 12:00 03/04/17 12:00 03/04/17 12:00 03/04/17 12:00 03/04/17 06:00 Intake and Output: 03/04/17 03/04/17 06:59 18:59 Intake Total 1200 Balance 1200 - Medications Medications: Current Medications Acetaminophen (Tylenol 325mg Tab) 650 mg PO Q6H PRN PRN Reason: Fever >100.4 F Aspirin (Ecotrin) 81 mg PO DAILY [facility] Last Admin: 03/04/17 12:10 Dose: 81 mg Atorvastatin Calcium (Lipitor) 40 mg PO DIN [facility] [place] Last Admin: 03/03/17 18:32 Dose: 40 mg Hydrochlorothiazide (Microzide) 12.5 mg PO DAILY [facility] [place] Last Admin: 03/04/17 12:09 Dose: 12.5 mg Pantoprazole Sodium (Protonix Ec Tab) 40 mg PO 0600 [facility] [place] Last Admin: 03/04/17 06:37 Dose: 40 mg - Labs Labs: 03/03/17 04:10 03/03/17 04:10 Attending/Attestation - Attestation I have personally seen and examined this patient.: Yes I have fully participated in the care of the patient.: Yes I have reviewed all pertinent clinical information, including history, physical exam and plan: Yes Notes (Text): 03/04/17 15:49 61 year old female with past medical history of hypertension who presented after possible syncopal episode. CT head showed chronic basal ganglia lacunar infarct. Echocardiogram was done today with report pending. Cardiology and neurology evaluation were appreciated. Outpatient stress test was recommended by cardiology. MRI/MRA showed 0.3 x 0.2 cm aneurysm at [place]ILFR[place]. CT head angiography is ordered. Carotid doppler was reviewed. She is on aspirin and statin. Will follow up with neurology recommendations. Continue with home medications for hypertension. Servando Anthony MD Hospitalist.
--- NOTE | 2017-03-04 15:02 | CP.PCM.PN ---
Subjective - Date & Time of Evaluation Date of Evaluation: 03/04/17 Time of Evaluation: 14:57 - Subjective Subjective: Mrs. Ramsey was seen and examined today at bedside. She denied having any headache, nausea, vertigo, weakness or sensory changes. There were no acute events overnight. I reviewed the results of the MRI/MRA of the head with her and let her know that there are several sub-cortical strokes that she had in the past and she may have a cerebral aneurysm. I mentioned to her that we need to get a CTA for further evaluation, but she was intent on going home. I said that she could get it a an outpatient, but I would prefer to have this test prior to her leaving. Objective - Vital Signs/Intake and Output Vital Signs (last 24 hours): Temp Pulse Resp BP Pulse Ox 98 F 95 H 20 134/86 100 03/04/17 12:00 03/04/17 12:00 03/04/17 12:00 03/04/17 12:00 03/04/17 06:00 Intake and Output: 03/04/17 03/04/17 06:59 18:59 Intake Total 1200 Balance 1200 - Medications Medications: Current Medications Acetaminophen (Tylenol 325mg Tab) 650 mg PO Q6H PRN PRN Reason: Fever >100.4 F Aspirin (Ecotrin) 81 mg PO DAILY [facility] Last Admin: 03/04/17 12:10 Dose: 81 mg Atorvastatin Calcium (Lipitor) 40 mg PO DIN [facility] Last Admin: 03/03/17 18:32 Dose: 40 mg Hydrochlorothiazide (Microzide) 12.5 mg PO DAILY [facility] Last Admin: 03/04/17 12:09 Dose: 12.5 mg Pantoprazole Sodium (Protonix Ec Tab) 40 mg PO 0600 [facility] Last Admin: 03/04/17 06:37 Dose: 40 mg - Labs Labs: 03/03/17 04:10 03/03/17 04:10 - Neurological Exam Neurological Exam: Alert, Awake, CN II-XII Intact, Normal Gait, Oriented x3, Reflexes Normal Neuro motor strength exam: Left Upper Extremity: 5, Right Upper Extremity: 5, Left Lower Extremity: 5, Right Lower Extremity: 5 Assessment and Plan (1) Syncope Assessment & Plan: No acute infarcts or vascular reason identified. Continue cardiac work-up. Status: Resolved (2) Cerebral aneurysm Assessment & Plan: Evaluate further with CTA of the head. Status: Chronic (3) Ischemic stroke Assessment & Plan: Aspirin 81 mg daily for stroke prevention is recommended. Control risk factors by managing LDL, serum glucose, blood pressure and healthy diet per primary care. Status: Chronic
[2017-03-04] MEDS ORDERED: Iodixanol 320 MG/ML 100 ML BOTTLE IV ONE (15:14)
--- NOTE | 2017-03-04 16:26 | CT ---
PROCEDURE: CT Angiography of the Brain. HISTORY: aneurysm evaluation COMPARISON: MR angiography 03/03/2017 TECHNIQUE: CT angiography of the intracranial arteries was performed. Coronal and sagittal maximum intensity projection reformated images were generated. This CT exam was performed using one or more of the following dose reduction techniques: Automated exposure control, adjustment of the mA and/or kV according to patient size, and/or use of iterative reconstruction technique. FINDINGS: INTERNAL CEREBRAL ARTERIES: Unremarkable. The skull base, petrous, cavernous and supraclinoid segments are bilaterally widely patient. ANTERIOR CEREBRAL ARTERIES: There is a probable 3 mm aneurysm arising from the left anterior cerebral at the junction with the anterior communicating artery. This is seen on coronal image 41 and sagittal image 48 MIDDLE CEREBRAL ARTERIES: Unremarkable. M1 and M2 segments are widely patent. Perisylvian branches grossly symmetric. POSTERIOR CIRCULATION: Basilar Artery: Unremarkable. Distal Vertebral Arteries: Unremarkable. Posterior Cerebral Arteries: Unremarkable. Posterior Inferior Cerebellar Arteries: Unremarkable. ANEURYSM/ VASCULAR MALFORMATIONS: As above OTHER FINDINGS: None. 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
--- NOTE | 2017-03-04 16:50 | CARD ---
APPROVED REPORT EXAM: Two-dimensional and M-mode echocardiogram with Doppler and color Doppler. INDICATION R/O PFO 2D DIMENSIONS Left Atrium (2D)4.3 (1.6-4.0cm)IVSd1.0 (0.7-1.1cm) LVDd4.3 (3.9-5.9cm)PWd0.8 (0.7-1.1cm) LVDs2.5 (2.5-4.0cm)FS (%) 41.2 % LVEF (%)72.4 (>50%) M-Mode DIMENSIONS Aortic Root3.20 (2.2-3.7cm)Aortic Cusp Exc.1.90 (1.5-2.0cm) Aortic Valve AoV Peak Xavjsbxu960.0cm/Vannessa Peak GR.10mmHg Mitral Valve MV E Cxtpvtpe08.3cm/sMV A Hakweres22.4cm/sE/A ratio1.0 TDI Lateral E' Peak V8.09cm/sMedial E' Peak V5.17cm/sE/Lateral E'10.3 E/Medial E'16.1 Pulmonary Valve PV Peak Toyuopdj92.0cm/sPV Peak Grad.2mmHg Tricuspid Valve TR Peak Pepkskzj760pz/sRAP [id number] Peak Gr.26mmHg [id number] LEFT VENTRICLE The left ventricle is normal size. There is normal left ventricular wall thickness. The left ventricular function is normal.EF-65% There is normal LV segmental wall motion. The left ventricular diastolic function is normal. No left ventricle thrombus noted on this study. There is no ventricular septal defect visualized. There is no left ventricular aneurysm. There is no mass noted in the left ventricle. RIGHT VENTRICLE The right ventricle is normal size. There is normal right ventricular wall thickness. The right ventricular systolic function is normal. ATRIA The left atrium is borderline dilated. The right atrium size is normal. The interatrial septum is intact with no evidence for an atrial septal defect. The atrial septum is aneurysmal.but no PFO by bubble study. AORTIC VALVE The aortic valve is normal in structure. No aortic regurgitation is present. There is no aortic valvular stenosis. There is no aortic valvular vegetation. MITRAL VALVE The mitral valve is thickened but opens well. Mitral regurgitation is trace to mild. There is no mitral valve stenosis. There is no evidence of mitral valve prolapse. TRICUSPID VALVE The tricuspid valve leaflets are thickened , but open well. There is trace tricuspid regurgitation.RVSP--36 mm of Hg There is no tricuspid valve stenosis. There is no tricuspid valve prolapse or vegetation. PULMONIC VALVE The pulmonary valve is normal in structure. There is no pulmonic valvular regurgitation. There is no pulmonic valvular stenosis. GREAT VESSELS The aortic root is normal in size. The ascending aorta is normal in size. The pulmonary artery is normal. The IVC is normal in size and collapses >50% with inspiration. PERICARDIAL EFFUSION There is no pleural effusion. There is no pericardial effusion. <Conclusion> The left ventricle is normal size. The left ventricular function is normal.EF-65% There is normal LV segmental wall motion. The aortic valve is normal in structure. Mitral regurgitation is trace to mild. There is trace tricuspid regurgitation.RVSP--36 mm of Hg Bubble Study was Negative for PFO .
--- NOTE | 2017-03-04 18:19 | CP.PCM.PN ---
Subjective - Date & Time of Evaluation Date of Evaluation: 03/04/17 Time of Evaluation: 18:10 - Subjective Subjective: Nurse called on this patient to report that patient has an aneurysm. I asked her to get orthostatics and walk the patient around to make sure she is not symptomatic. Nurse called back to let me know she called the neurologist. I asked her to follow up with the Neurologist that she spoke with and make sure that he is putting in a note with his recommendations for outpatient follow up. Objective - Vital Signs/Intake and Output Vital Signs (last 24 hours): Temp Pulse Resp BP Pulse Ox 98 F 95 H 20 134/86 100 03/04/17 12:00 03/04/17 12:00 03/04/17 12:00 03/04/17 12:00 03/04/17 06:00 Intake and Output: 03/04/17 03/04/17 06:59 18:59 Intake Total 1200 480 Balance 1200 480 - Medications Medications: Current Medications Acetaminophen (Tylenol 325mg Tab) 650 mg PO Q6H PRN PRN Reason: Fever >100.4 F Aspirin (Ecotrin) 81 mg PO DAILY COUNTS INCLUDE 234 BEDS AT THE [facility] Last Admin: 03/04/17 12:10 Dose: 81 mg Atorvastatin Calcium (Lipitor) 40 mg PO DIN COUNTS INCLUDE 234 BEDS AT THE [facility] Last Admin: 03/03/17 18:32 Dose: 40 mg Hydrochlorothiazide (Microzide) 12.5 mg PO DAILY COUNTS INCLUDE 234 BEDS AT THE [facility] Last Admin: 03/04/17 12:09 Dose: 12.5 mg Pantoprazole Sodium (Protonix Ec Tab) 40 mg PO 0600 COUNTS INCLUDE 234 BEDS AT THE [facility] Last Admin: 03/04/17 06:37 Dose: 40 mg - Labs Labs: 03/03/17 04:10 03/03/17 04:10
[2017-03-04 18:21] VITALS: BP 122/79; PULSE 74; RESP 18; TEMP 99.5
--- NOTE | 2017-03-05 12:06 | CP.PCM.DIS ---
<Julita Yip - Last Filed: 03/05/17 12:02> Provider - Provider Date of Admission: 03/02/17 17:28 Attending physician: Servando Anthony MD Consults: Neuro : Dr Murillo Cardio: Dr. Garcia Time Spent in preparation of Discharge (in minutes): 35 Hospital Course - Lab Results Lab Results: Most Recent Lab Values WBC 7.5 10^3/ul (4.5-11.0) D 03/03/17 04:10 RBC 4.29 10^6/uL (3.5-6.1) 03/03/17 04:10 Hgb 12.0 g/dL (12.0-16.0) 03/03/17 04:10 Hct 34.3 % (36.0-48.0) L 03/03/17 04:10 MCV 80.0 fl (80.0-105.0) 03/03/17 04:10 MCH 28.0 pg (25.0-35.0) 03/03/17 04:10 MCHC 35.0 g/dl (31.0-37.0) 03/03/17 04:10 RDW 14.0 % (11.5-14.5) 03/03/17 04:10 Plt Count 163 10^3/uL (120.0-450.0) 03/03/17 04:10 MPV 10.6 fl (7.0-11.0) 03/03/17 04:10 Gran % 53.6 % (50.0-68.0) 03/03/17 04:10 Lymph % (Auto) 36.3 % (22.0-35.0) H 03/03/17 04:10 Richardson % (Auto) 8.0 % (1.0-6.0) H 03/03/17 04:10 Eos % (Auto) 1.7 % (1.5-5.0) 03/03/17 04:10 Baso % (Auto) 0.4 % (0.0-3.0) 03/03/17 04:10 Gran # 4.03 (1.4-6.5) 03/03/17 04:10 Lymph # 2.7 (1.2-3.4) 03/03/17 04:10 Richardson # 0.6 (0.1-0.6) 03/03/17 04:10 Eos # 0.1 (0.0-0.7) 03/03/17 04:10 Baso # 0.03 K/mm3 (0.0-2.0) 03/03/17 04:10 D-Dimer, Quantitative 0.49 mg/L FEU (0-0.50) 03/02/17 15:42 Sodium 141 mmol/L (132-148) 03/03/17 04:10 Potassium 4.0 mmol/L (3.6-5.0) 03/03/17 04:10 Chloride 103 mmol/L (95-110) 03/03/17 04:10 Carbon Dioxide 28 mmol/L (21-33) 03/03/17 04:10 Anion Gap 14 (10-20) 03/03/17 04:10 BUN 13 mg/dL (7-21) 03/03/17 04:10 Creatinine 0.8 mg/dL (0.5-1.4) 03/03/17 04:10 Est GFR ( Amer) > 60 03/03/17 04:10 Est GFR (Non-Af Amer) > 60 03/03/17 04:10 POC Glucose (mg/dL) 155 mg/dL (65-110) H 03/02/17 15:45 Random Glucose 102 mg/dL (70-110) 03/03/17 04:10 Hemoglobin A1c 5.6 % (4.2-6.5) 03/03/17 04:10 Calcium 8.8 mg/dL (8.4-10.5) 03/03/17 04:10 Phosphorus 4.0 mg/dL (2.5-4.5) 03/02/17 15:42 Magnesium 2.2 mg/dL (1.7-2.2) 03/02/17 15:42 Total Bilirubin 0.4 mg/dL (0.2-1.3) 03/02/17 15:42 AST 33 U/L (15-39) 03/02/17 15:42 ALT 31 U/L (7-56) 03/02/17 15:42 Alkaline Phosphatase 105 U/L (38-133) 03/02/17 15:42 Lactate Dehydrogenase 597 U/L (333-699) 03/02/17 15:42 Total Creatine Kinase 273 U/L (35-230) H 03/02/17 15:42 CK-MB (CK-2) 1.5 ng/mL (0.0-3.6) 03/02/17 15:42 CK-MB (CK-2) % Cancelled 03/02/17 15:42 Troponin I < 0.01 ng/mL 03/02/17 15:42 Total Protein 8.0 g/dL (5.8-8.3) 03/02/17 15:42 Albumin 4.6 g/dL (3.0-4.8) 03/02/17 15:42 Globulin 3.4 gm/dL 03/02/17 15:42 Albumin/Globulin Ratio 1.4 (1.1-1.8) 03/02/17 15:42 Triglycerides 186 mg/dL (35-160) H 03/03/17 04:10 Cholesterol 226 mg/dL (130-200) H 03/03/17 04:10 LDL Cholesterol Direct 156 mg/dL (0-129) H 03/03/17 04:10 HDL Cholesterol 36 mg/dL (29-60) 03/03/17 04:10 Lipase 90 U/L (23-300) 03/02/17 15:42 TSH 3rd Generation 0.8 MIU/ml (0.46-4.68) 03/03/17 04:10 Urine Color Yellow (YELLOW) 03/02/17 16:42 Urine Appearance Clear (CLEAR) 03/02/17 16:42 Urine pH 6.5 (4.7-8.0) 03/02/17 16:42 Ur Specific [place] 1.020 (1.005-1.035) 03/02/17 16:42 Urine Protein Negative mg/dL (<30 mg/dL) 03/02/17 16:42 Urine Glucose (UA) Negative mg/dL (NEGATIVE) 03/02/17 16:42 Urine Ketones Negative mg/dL (NEGATIVE) 03/02/17 16:42 Urine Blood Negative (NEGATIVE) 03/02/17 16:42 Urine Nitrate Negative (NEGATIVE) 03/02/17 16:42 Urine Bilirubin Negative (NEGATIVE) 03/02/17 16:42 Urine Urobilinogen 0.2 E.U./dL (<1 E.U./dL) 03/02/17 16:42 Ur Leukocyte Esterase Trace Ab/uL (NEGATIVE) H 03/02/17 16:42 Urine RBC Negative /hpf (0-2) 03/02/17 16:42 Urine WBC 1 - 3 /hpf (0-6) 03/02/17 16:42 Ur Epithelial Cells 1 - 3 /hpf (0-5) 03/02/17 16:42 Urine Bacteria Few (NEG) 03/02/17 16:42 - Hospital Course Hospital Course: 61 F PMHx of HTN presented with c/o possible syncopal event. Pt speaks [place]. She states that she was at work when she started having abdominal pain. She went to the toilet and was having a conversation with someone in the stall next to her when she stopped responding. When her friend did not hear from her, the friend came into the patient's stall to find her slumped over. EMT was called. Patient states that she only fully regained consciousness in the ambulance. Patient denies biting her tongue, loss of bowel/bladder, falling and hitting her head, nor any other symptoms. She states that she is no longer having abdominal pain. Patient further states that she felt confused a little earlier but feels fine now. Pt denies recent illness or sick contacts. Pt denies f/ch/n/v/d/cp/sob. During hospital stay, patient denied dizziness, difficulties with gait, headaches, nausea, LOC. Patient tolerated diet well never Nausea or vomiting episodes. patient ambulated well. Imaging done: 03/04 CTA Head: 3mm left anterior cerebral artery aneurysm at junction with anterior communicating artery 03/[address]: left basal ganglia lacunar infarct 4mm 03/02 CXR: no pulmonary disease 03/02 EK NSR 03/03 MRI T2 hyperdensity in left thalamus 03/03 MRA Head/Neck: 0.3 x 0.2 WILFRED aneurysm 03/03 Echo Bubble Study: f/u today: diet: heart healthy per Dr. Murillo: follow up with Dr. Jose Conde for elective cerebral angiogram. Patient needs to control her BP and not smoke. - Date & Time of H&P Date of H&P: 03/05/17 Time of H&P: 12:04 Discharge Exam - Head Exam Head Exam: NORMAL INSPECTION - Eye Exam Eye Exam: EOMI, Normal appearance Pupil Exam: NORMAL ACCOMODATION - ENT Exam ENT Exam: Mucous Membranes Moist - Neck Exam Neck exam: Full Rom - Respiratory Exam Respiratory Exam: Clear to PA & Lateral, NORMAL BREATHING PATTERN. absent: Accessory Muscle Use, Respiratory Distress - Cardiovascular Exam Cardiovascular Exam: REGULAR RHYTHM. absent: Bradycardia, Tachycardia - GI/Abdominal Exam GI & Abdominal Exam: Normal Bowel Sounds, Soft. absent: Diminished Bowel Sounds , Tenderness - Extremities Exam Extremities exam: full ROM - Back Exam Back exam: FULL ROM. absent: tenderness - Neurological Exam Neurological exam: Alert, CN II-XII Intact, Normal Gait, Oriented x3 - Skin Skin Exam: Dry, Intact, Normal Color, Warm Discharge Plan - Discharge Medications Prescriptions: Aspirin [Ecotrin] 81 mg PO DAILY #30 Atorvastatin [Lipitor] 40 mg PO DIN #30 tab hydroCHLOROthiazide [Microzide] 12.5 mg PO DAILY #14 cap - Follow Up Plan Condition: IMPROVED Disposition: HOME/ ROUTINE Patient education suggested?: Yes Instructions: Syncope (DC), Syncope (GEN), Ischemic Stroke (DC), Chronic Hypertension (DC), Stroke (DC) Additional Instructions: 1. Follow up with your primary doctor within 2-3 days of discharge. 2. Follow up with your neurologist, Dr. Jaime Conde within 5 days of discharge. 3. Fill any medications prescribed to you and take as directed. 4. Follow up with your neurologist regarding the 3mm aneurysm found on imaging. 5. Please refrain from smoking and take your blood pressure medication as directed. 6. Return to the emergency room should you have worsening of your symptoms or feel unwell. Referrals: JESSY CONDE MD [Staff Provider] - <Servando Anthony - Last Filed: 03/05/17 12:25> Provider - Provider Date of Admission: 03/02/17 17:28 Attending physician: Servando Anthony MD Hospital Course - Lab Results Lab Results: Most Recent Lab Values WBC 7.5 10^3/ul (4.5-11.0) D 03/03/17 04:10 RBC 4.29 10^6/uL (3.5-6.1) 03/03/17 04:10 Hgb 12.0 g/dL (12.0-16.0) 03/03/17 04:10 Hct 34.3 % (36.0-48.0) L 03/03/17 04:10 MCV 80.0 fl (80.0-105.0) 03/03/17 04:10 MCH 28.0 pg (25.0-35.0) 03/03/17 04:10 MCHC 35.0 g/dl (31.0-37.0) 03/03/17 04:10 RDW 14.0 % (11.5-14.5) 03/03/17 04:10 Plt Count 163 10^3/uL (120.0-450.0) 03/03/17 04:10 MPV 10.6 fl (7.0-11.0) 03/03/17 04:10 Gran % 53.6 % (50.0-68.0) 03/03/17 04:10 Lymph % (Auto) 36.3 % (22.0-35.0) H 03/03/17 04:10 Richardson % (Auto) 8.0 % (1.0-6.0) H 03/03/17 04:10 Eos % (Auto) 1.7 % (1.5-5.0) 03/03/17 04:10 Baso % (Auto) 0.4 % (0.0-3.0) 03/03/17 04:10 Gran # 4.03 (1.4-6.5) 03/03/17 04:10 Lymph # 2.7 (1.2-3.4) 03/03/17 04:10 Richardson # 0.6 (0.1-0.6) 03/03/17 04:10 Eos # 0.1 (0.0-0.7) 03/03/17 04:10 Baso # 0.03 K/mm3 (0.0-2.0) 03/03/17 04:10 D-Dimer, Quantitative 0.49 mg/L FEU (0-0.50) 03/02/17 15:42 Sodium 141 mmol/L (132-148) 03/03/17 04:10 Potassium 4.0 mmol/L (3.6-5.0) 03/03/17 04:10 Chloride 103 mmol/L (95-110) 03/03/17 04:10 Carbon Dioxide 28 mmol/L (21-33) 03/03/17 04:10 Anion Gap 14 (10-20) 03/03/17 04:10 BUN 13 mg/dL (7-21) 03/03/17 04:10 Creatinine 0.8 mg/dL (0.5-1.4) 03/03/17 04:10 Est GFR ( Amer) > 60 03/03/17 04:10 Est GFR (Non-Af Amer) > 60 03/03/17 04:10 POC Glucose (mg/dL) 155 mg/dL (65-110) H 03/02/17 15:45 Random Glucose 102 mg/dL (70-110) 03/03/17 04:10 Hemoglobin A1c 5.6 % (4.2-6.5) 03/03/17 04:10 Calcium 8.8 mg/dL (8.4-10.5) 03/03/17 04:10 Phosphorus 4.0 mg/dL (2.5-4.5) 03/02/17 15:42 Magnesium 2.2 mg/dL (1.7-2.2) 03/02/17 15:42 Total Bilirubin 0.4 mg/dL (0.2-1.3) 03/02/17 15:42 AST 33 U/L (15-39) 03/02/17 15:42 ALT 31 U/L (7-56) 03/02/17 15:42 Alkaline Phosphatase 105 U/L (38-133) 03/02/17 15:42 Lactate Dehydrogenase 597 U/L (333-699) 03/02/17 15:42 Total Creatine Kinase 273 U/L (35-230) H 03/02/17 15:42 CK-MB (CK-2) 1.5 ng/mL (0.0-3.6) 03/02/17 15:42 CK-MB (CK-2) % Cancelled 03/02/17 15:42 Troponin I < 0.01 ng/mL 03/02/17 15:42 Total Protein 8.0 g/dL (5.8-8.3) 03/02/17 15:42 Albumin 4.6 g/dL (3.0-4.8) 03/02/17 15:42 Globulin 3.4 gm/dL 03/02/17 15:42 Albumin/Globulin Ratio 1.4 (1.1-1.8) 03/02/17 15:42 Triglycerides 186 mg/dL (35-160) H 03/03/17 04:10 Cholesterol 226 mg/dL (130-200) H 03/03/17 04:10 LDL Cholesterol Direct 156 mg/dL (0-129) H 03/03/17 04:10 HDL Cholesterol 36 mg/dL (29-60) 03/03/17 04:10 Lipase 90 U/L (23-300) 03/02/17 15:42 TSH 3rd Generation 0.8 MIU/ml (0.46-4.68) 03/03/17 04:10 Urine Color Yellow (YELLOW) 03/02/17 16:42 Urine Appearance Clear (CLEAR) 03/02/17 16:42 Urine pH 6.5 (4.7-8.0) 03/02/17 16:42 Ur Specific [place] 1.020 (1.005-1.035) 03/02/17 16:42 Urine Protein Negative mg/dL (<30 mg/dL) 03/02/17 16:42 Urine Glucose (UA) Negative mg/dL (NEGATIVE) 03/02/17 16:42 Urine Ketones Negative mg/dL (NEGATIVE) 03/02/17 16:42 Urine Blood Negative (NEGATIVE) 03/02/17 16:42 Urine Nitrate Negative (NEGATIVE) 03/02/17 16:42 Urine Bilirubin Negative (NEGATIVE) 03/02/17 16:42 Urine Urobilinogen 0.2 E.U./dL (<1 E.U./dL) 03/02/17 16:42 Ur Leukocyte Esterase Trace Ab/uL (NEGATIVE) H 03/02/17 16:42 Urine RBC Negative /hpf (0-2) 03/02/17 16:42 Urine WBC 1 - 3 /hpf (0-6) 03/02/17 16:42 Ur Epithelial Cells 1 - 3 /hpf (0-5) 03/02/17 16:42 Urine Bacteria Few (NEG) 03/02/17 16:42 Attending/Attestation - Attestation I have personally seen and examined this patient.: Yes I have fully participated in the care of the patient.: Yes I have reviewed all pertinent clinical information, including history, physical exam and plan: Yes Notes (Text): 03/05/17 12:22 61 year old female with past medical history of hypertension who presented after possible syncopal episode. CT head showed chronic basal ganglia lacunar infarct. Echocardiogram and carotid dopplers were also reviewed. MRI/MRA showed 0.3 x 0.2 cm aneurysm at WILFRED. CT head angiography was done which showed probable 3 mm LACA aneurysm. This was reviewed with neurology who recommended close follow up with with interventional neurologist on discharge. Patient is on aspirin and statin. Patient is discharged home to follow up with pmd and neurologist as above. Servando Anthony MD Hospitalist.
== END 2017-03-04 20:38 | disposition home or self-care (01) ==
LOC: ED 15:17 → ERH 17:28 → 2RNO 18:51
PROVIDERS: ADMIT Internal Medicine; ATTEND Internal Medicine
DX: R55 Syncope and collapse (principal); I67.1 Cerebral aneurysm, nonruptured; I10 Essential (primary) hypertension; E78.00 Pure hypercholesterolemia, unspecified; R10.9 Unspecified abdominal pain
CPT/HCPCS: 36415; 70450; 70496; 70544; 70547; 70553; 71020; 80048; 80053; 80061; 81001; 82550; 82553; 82948; 83036; 83615; 83690; 83735; 84100; 84443; 84484; 85025; 85378; 87086; 93005; 93306; 93880; 96374; 99285; A9579; G0378; J7040; Q9967

== ENCOUNTER 2017-05-06 16:57 | Emergency (ER) | payer MEDICAID, OTHER ==
[2017-05-06 17:12] VITALS: PULSE 74; RESP 18; TEMP 99.3; O2SAT 98; BMI 29.0
[2017-05-06 17:47] VITALS: BP 135/86
[2017-05-06] MEDS ORDERED: Ipratropium 0.02% Inhal Soln (0.5 mg/2.5 ml) UD IH STA (18:30)
--- NOTE | 2017-05-06 20:13 | ED PDOC ---
Arrival/HPI - General Chief Complaint: Cough, Cold, Congestion Time Seen by Provider: 05/06/17 16:59 Historian: Patient - History of Present Illness Narrative History of Present Illness (Text): 05/06/17 20:13 A 61 year old female, whose past medical history includes hypertension, presents to the emergency department complaining of dry cough for the past 5-6 weeks. Patient reports she was formerly on an unknown rx about 5-6 weeks ago due to her blood pressure inefficacious, PMD changed patient to another medication. Patient is complaining of cough and PMD prescribed patient Lisinopril, hydrochlorothiazide and amlodipine 2.5 mg. Patient denies any dyspnea on exertion, fever, chills, chest pain, syncopal events, mucoid production, sick contacts, or any other complaints at this time. Time/Duration: > month Symptom Onset: Sudden Symptom Course: Unchanged Activities at Onset: Rest Context: Home Past Medical History - Provider Review Nursing Documentation Reviewed: Yes - Infectious Disease Hx of Infectious Diseases: None - Cardiac Hx Hypertension: Yes - Pulmonary Hx Respiratory Disorders: No - Neurological Hx Transient Ischemic Attacks (TIA): Yes - HEENT Hx HEENT Disorder: No - Renal Hx Renal Disorder: No - Endocrine/Metabolic Hx Endocrine Disorders: No - Hematological/Oncological Hx Blood Disorders: No - Integumentary Hx Dermatological Disorder: No - Musculoskeletal/Rheumatological Hx Musculoskeletal Disorders: No Hx Falls: No - Gastrointestinal Hx Gastrointestinal Disorders: No - Genitourinary/Gynecological Hx Genitourinary Disorders: No - Psychiatric Hx Psychophysiologic Disorder: No Hx Substance Use: No - Surgical History Hx Hysterectomy: Yes Other/Comment: Lt ankle cyst removal - Anesthesia Hx Anesthesia: Yes Hx Anesthesia Reactions: No Hx Malignant Hyperthermia: No - Suicidal Assessment Feels Threatened In Home Enviroment: No Family/Social History - Physician Review Nursing Documentation Reviewed: Yes Family/Social History: No Known Family HX Smoking Status: Never Smoked Hx Alcohol Use: No Hx Substance Use: No Allergies/Home Meds Allergies/Adverse Reactions: Allergies No Known Allergies Allergy (Verified 05/06/17 17:12) Review of Systems - Physician Review All systems were reviewed & negative as marked: Yes - Review of Systems Constitutional: absent: Fevers, Other (chills) Respiratory: Cough (dry). absent: Sputum Cardiovascular: absent: Chest Pain, CONTRERAS, Syncope Physical Exam Vital Signs Reviewed: Yes Vital Signs Temp Pulse Resp BP Pulse Ox 05/06/17 17:46 135/86 05/06/17 17:13 99.3 F 74 18 135/102 H 98 05/06/17 17:11 99.3 F 74 18 135/102 H 98 Temperature: Afebrile Blood Pressure: Hypertensive Pulse: Regular Respiratory Rate: Normal Appearance: Positive for: Well-Appearing, Non-Toxic, Comfortable Pain Distress: None Mental Status: Positive for: Alert and Oriented X 3 - Systems Exam Head: Present: Atraumatic, Normocephalic Pupils: Present: PERRL Extroacular Muscles: Present: EOMI Conjunctiva: Present: Normal Mouth: Present: Moist Mucous Membranes Neck: Present: Normal Range of Motion Respiratory/Chest: Present: Clear to Auscultation, Good Air Exchange. No: Respiratory Distress, Accessory Muscle Use Cardiovascular: Present: Regular Rate and Rhythm, Normal S1, S2. No: Murmurs Abdomen: Present: Normal Bowel Sounds. No: Tenderness, Distention, Peritoneal Signs Back: Present: Normal Inspection Upper Extremity: Present: Normal Inspection. No: Cyanosis, Edema Lower Extremity: Present: Normal Inspection. No: Edema Neurological: Present: GCS=15, CN II-XII Intact, Speech Normal Skin: Present: Warm, Dry, Normal Color. No: Rashes Psychiatric: Present: Alert, Oriented x 3, Normal Insight, Normal Concentration Medical Decision Making ED Course and Treatment: 05/06/17 20:11 Impression: A 61 year old female with chronic nonproductive cough. Plan: -- chest xray -- Zithromax, Atrovent -- Reassess and disposition Prior Visits: Notes and results from previous visits were reviewed. Patient was last seen in the emergency department on 04/29/17 for evaluation of non-productive cough. Progress Notes: 05/06/17 20:25 chest xray: no acute findings, interpreted by me. 05/06/17 20:28 On re-evaluation, patient feels better and is in no acute distress. Patient in agreement with plan to be discharged home. Patient is stable for discharge. Patient was instructed to follow up with physician or return if symptoms worsen or new concerning symptoms arise. - RAD Interpretation Radiology Orders: 05/06/17 18:29 CHEST TWO VIEWS (PA/LAT) [RAD] Stat - Medication Orders Current Medication Orders: Discontinued Medications Azithromycin (Zithromax) 500 mg PO STAT STA PRN Reason: Protocol Stop: 05/06/17 18:31 Last Admin: 05/06/17 18:49 Dose: 500 mg Ipratropium [place] (Atrovent) 0.5 mg IH STAT STA Stop: 05/06/17 18:31 Last Admin: 05/06/17 18:49 Dose: 0.5 mg - Scribe Statement The provider has reviewed the documentation as recorded by the Rick Martinez Provider Scribe Attestation: All medical record entries made by the Artisibbryan were at my direction and personally dictated by me. I have reviewed the chart and agree that the record accurately reflects my personal performance of the history, physical exam, medical decision making, and the department course for this patient. I have also personally directed, reviewed, and agree with the discharge instructions and disposition. Disposition/Present on Arrival - Present on Arrival History of DVT/PE: No History of Uncontrolled Diabetes: No Urinary Catheter: No History of Decub. Ulcer: No History Surgical Site Infection Following: None - Disposition Diagnosis: Cough due to ORALIA inhibitor, Cough in adult patient Disposition: HOME/ ROUTINE Patient Problems: Current Active Problems Problem Status Onset Cough due to ORALIA inhibitor Acute Cough in adult patient Acute Condition: GOOD Forms: [facility] (I[place]ic)
--- NOTE | 2017-05-07 08:11 | RAD ---
HISTORY: cough COMPARISON: 03/02/2017 TECHNIQUE: Chest PA and lateral FINDINGS: LUNGS: No active pulmonary disease. PLEURA: No significant pleural effusion identified. No pneumothorax apparent. CARDIOVASCULAR: Normal. OSSEOUS STRUCTURES: No significant abnormalities. VISUALIZED UPPER ABDOMEN: Normal. OTHER FINDINGS: None. IMPRESSION: No active disease.
== END 2017-05-06 20:46 | disposition home or self-care (01) ==
LOC: ED 16:57
DX: R05 Cough (principal); I10 Essential (primary) hypertension